=== PATIENT | male | born 1955 | race Caucasian/White ===

== ENCOUNTER 2020-12-10 06:00 | Inpatient (IN) | payer MEDICARE ==
[~2020-12-10] VITALS: Ht 177.8 cm; Wt 114.4 kg
[~2020-12-10 06:00] MED LIST: AEREDS PO; ANTI-DEPRESSANT PO; Flomax0.4 MG PO; IBUP800 PO; LISI20 PO; MULVITA PO
[2020-12-10] MEDS ORDERED: FINA5 PO (06:18)
[2020-12-10] MEDS ORDERED: ESCI20 PO (06:18)
--- NOTE | 2020-12-10 06:54 | NUR ---
Ambulatory in Day Surgery History, Chart, Medications and Allergies reviewed before start of procedure. Lungs clear T/O to Auscultation. Patient confirms NPO status and agrees with scheduled surgery. Pre-Op teaching done. Pt verbalizes understanding.
--- NOTE | 2020-12-10 08:59 | NUR ---
12/10/20 0859 RIMA,HAO RODRIGEZ PLACED PTS LEFT SUPRA CLAVICULAR BLOCK INTRA OP PRIOR TO PROCEDURE.
--- NOTE | 2020-12-10 17:26 | NUR ---
SHIFT SUMMARY PT NEW ADMIT TO UNIT POST OP LEFT TOTAL SHOULDER WITH DR DAWKINS. ALERT AND ORIENTED THROUGHOUT SHIFT. TOLERATING REGULAR DIET AND FLUIDS. AMBULATING INDEPENDENT IN ROOM. PAIN CONTROLLED WITH PO PAIN MEDS. VOIDING WELL. WORKING WITH PT/OT. AQUACEL TO LEFT SHOULDER C/D/I. SLIGHT NUMBNESS TO FINGERS. MOVES ALL FINGERS AND WRIST WELL. WARM AND GOOD CAP REFILL. LEFT ARM IN SLING. NWB. PLAN TO DISCHARGE HOME TOMORROW 12/11/2020.
--- NOTE | 2020-12-11 04:32 | NUR ---
SHIFT SUMMARY POD#1 LEFT TOTAL SHOULDER ARTHROPLASTY. AAOX4. DISCOMFORT CONTROLLED WITH 5MG ROXICODONE Q4-6P + SCHEDULED TORADOL/TYLENOL. DENIES NAUSEA/EMESIS. DRESSING TO LEFT SHOULDER C/D/I. PT REPORTING INTERMITTENT TINGLING TO LUE, DECREASES WITH REPOSITIONING. CAP REFILL BRISK, MOVES FINGERS WELL BUE. SBA UP TO RESTROOM. POST OP ABX COMPLETED. PT RESTING WELL THIS AM WITH CALL LIGHT IN REACH.
[2020-12-11 04:57] LABS: BASOPHILS PERCENT AUTO 0 % (0-2); EOSINOPHILS ABSOLUTE AUTO 0.01 K/mm3 (0.00-0.68); EOSINOPHILS PERCENT AUTO 0 % (0-6); Hematocrit 41.1 % (37.0-53.0); Hemoglobin 13.5 g/dL (13.5-17.5); IMMATURE GRAN ABSOLUTE AUTO 0.05 K/mm3 (0.00-0.10); IMMATURE GRAN PERCENT AUTO 0 % (0-1); LYMPHOCYTES ABSOLUTE AUTO 1.13 K/mm3 (0.84-5.20); LYMPHOCYTES PERCENT AUTO 10 % (21-46); MONOCYTES ABSOLUTE AUTO 0.84 K/mm3 (0.16-1.47); MONOCYTES PERCENT AUTO 7 % (4-13); Mean Corpuscular HGB 29.7 pg (26.0-34.0); Mean Corpuscular HGB Conc 32.8 g/dL (31.5-36.5); Mean Corpuscular Volume 91 fL (80-100); Mean Platelet Volume 9.5 fL (9.1-12.4); NEUTROPHILS PERCENT AUTO 83 % (41-73); Platelet Count 181 K/mm3 (150-400); RDW Coefficient Variation 13.6 % (11.7-14.2); RDW Standard Deviation 45.4 fL (35.1-46.3); Red Blood Cell Count 4.54 M/mm3 (4.30-5.90); White Blood Cell Count 11.73 K/mm3 (4.00-11.30)
[2020-12-11 05:19] LABS: Anion Gap 3 mmol/L (6-16); Blood Urea Nitrogen 29 mg/dL (8-24); Bun/Creatinine Ratio 28.2 (12.0-20.0); CO2, Blood 27 mmol/L (21-32); Chloride, Blood 103 mmol/L (98-108); Creatinine, Blood 1.03 mg/dL (0.60-1.20); Glomerular Filtration Rate >60 (60-); Glucose, Blood 129 mg/dL (70-99); Magnesium, Blood 2.2 mg/dL (1.6-2.4); Potassium, Blood 4.4 mmol/L (3.5-5.5); Sodium, Blood 133 mmol/L (136-145)
[2020-12-11] MEDS ORDERED: OXYC5 PO (11:53)
[2020-12-11] MEDS ORDERED: ACET500 PO (12:12)
--- NOTE | 2020-12-11 14:28 | NUR ---
DISCHARGE PT DISCHARGED HOME FROM UNIT AT APROX 1230. PT GIVEN WRITTEN AND VERBAL DISCHARGE INSTRUCTIONS AND VERBALIZED UNDERSTANDING. IV REMOVED, PT TOLERATED WELL.
== END 2020-12-11 13:15 | disposition home or self-care (01) | DRG 483 ==
LOC: SURS 06:00
PROVIDERS: ADMIT Orthopaedic Surgery
PROC: 0LS40ZZ Reposition Left Upper Arm Tendon, Open Approach (ICD-10-PCS; 2020-12-10)
PROC: 0RRK00Z Replacement of Left Shoulder Joint with Reverse Ball and Socket Synthetic Substitute, Open Approach (ICD-10-PCS; principal; 2020-12-10 07:30)
PROC: 3E0T3BZ Introduction of Anesthetic Agent into Peripheral Nerves and Plexi, Percutaneous Approach (ICD-10-PCS; 2020-12-11)
DX: M19.012 Primary osteoarthritis, left shoulder (principal); F41.9 Anxiety disorder, unspecified; I10 Essential (primary) hypertension; Z87.891 Personal history of nicotine dependence; Z79.899 Other long term (current) drug therapy
CPT/HCPCS: 36415; 73030; 80048; 83735; 85025; 97110; 97161; 97166; 97530; 97535; A9270; C1776; J0171; J0690; J0735; J1100; J1885; J2250; J2370; J2405; J2704; J2795; J3010; J7120

== ENCOUNTER → 2021-07-13 | Outpatient (CLI) | payer MEDICARE ==
[~2021-07-13] MED LIST changes: +ACET500 PO; +ESCI20 PO; +FINA5 PO; +OXYC5 PO
== END | disposition home or self-care (01) ==
LOC: LAB SHORT 12:16
DX: C44.311 Basal cell carcinoma of skin of nose (principal)
CPT/HCPCS: 88305